=== PATIENT | female | born 1980 | race Caucasian/White ===

== ENCOUNTER 2017-08-26 15:10 | Emergency (ER) | payer OTHER, MEDICAID ==
[~2017-08-26] VITALS: Ht 162.6 cm; Wt 68.0 kg
[~2017-08-26 15:10] MED LIST: AMOXICILLIN500 M1 PO; CLARITIN10 MG PO; FLONASE 0.05%50 MCG NASAL; MEDROLDOSEPACK PO; REGLAN 10 MG TA10 MG PO; TRINATE TABLET1 TAB PO
[2017-08-26] MEDS ORDERED: AZITHROMYCIN 2250 MG PO (16:03)
[2017-08-26 16:08] VITALS: BP 116/75
== END 2017-08-26 16:09 | disposition home or self-care (01) ==
LOC: M.ERS 15:10
DX: J06.9 Acute upper respiratory infection, unspecified (principal); M32.9 Systemic lupus erythematosus, unspecified; Z88.8 Allergy status to other drugs, medicaments and biological substances

== ENCOUNTER 2018-05-05 01:24 | Emergency (ER) | payer OTHER, MEDICAID ==
[~2018-05-05] VITALS: Ht 162.6 cm; Wt 68.0 kg
[~2018-05-05 01:24] MED LIST changes: +AZITHROMYCIN 2250 MG PO
[2018-05-05] MEDS ORDERED: ZPAK PO (01:43)
[2018-05-05] MEDS ORDERED: PREDNISONE 20 M20 M1 PO (01:43)
[2018-05-05] MEDS ORDERED: VENTOLIN HFA 1818 GM INH (01:43)
[2018-05-05 02:30] VITALS: BP 100/56
== END 2018-05-05 02:30 | disposition home or self-care (01) ==
LOC: M.ERS 01:24
DX: J45.901 Unspecified asthma with (acute) exacerbation (principal); M32.9 Systemic lupus erythematosus, unspecified; Z91.040 Latex allergy status; Z88.6 Allergy status to analgesic agent

== ENCOUNTER 2018-08-28 16:04 | Emergency (ER) | payer OTHER, MEDICAID ==
[~2018-08-28] VITALS: Ht 162.6 cm; Wt 65.1 kg
[~2018-08-28 16:04] MED LIST changes: +PREDNISONE 20 M20 M1 PO; +VENTOLIN HFA 1818 GM INH; +ZPAK PO
[2018-08-28 16:32] VITALS: BP 113/75
[2018-08-28] MEDS ORDERED: CENTANY30 GM TOP (16:34)
[2018-08-28] MEDS ORDERED: KEFLEX500 M1 PO (16:34)
[2018-08-28] MEDS ORDERED: BACTRIM DS TAB1 EACH PO (16:34)
== END 2018-08-28 16:39 | disposition home or self-care (01) ==
LOC: M.ERS 16:04
DX: L03.811 Cellulitis of head [any part, except face] (principal); L02.01 Cutaneous abscess of face; M32.9 Systemic lupus erythematosus, unspecified; J45.909 Unspecified asthma, uncomplicated; Z91.040 Latex allergy status; Z88.8 Allergy status to other drugs, medicaments and biological substances